=== PATIENT | female | born 1990 | race Caucasian/White ===

== ENCOUNTER 2022-06-20 16:07 | Emergency (ER) | payer MEDICAID ==
[~2022-06-20] VITALS: Ht 167.6 cm; Wt 101.0 kg
[~2022-06-20 16:07] MED LIST: [UNRECOGNIZED DRUG - CODE]
[2022-06-20] MEDS ORDERED: ACETAMINOPHEN 325MG TABLET PO STA (18:03)
[2022-06-20] MEDS ORDERED: PENI500T MT (18:42)
[2022-06-20] MEDS ORDERED: PENICILLIN V POTASSIUM 250MG TABLET PO SCH (18:45)
[2022-06-20] MEDS ORDERED: IBUPROFEN 600MG TABLET PO ONE (18:45)
[2022-06-20] MEDS ORDERED: DEXAMETHASONE 4MG TABLET PO ONE (18:45)
[2022-06-20 19:20] VITALS: BP 136/79
[2022-06-20 20:04] LABS: CLARITY URINE CLEAR (CLEAR); COLOR URINE YELLOW (YELLOW); KETONES URINE NEGATIVE (NEGATIVE); LEUKOCYTE ESTERASE URINE NEGATIVE (NEGATIVE); NITRITE URINE NEGATIVE (NEGATIVE); OCCULT BLOOD URINE 1+ (NEGATIVE); PROTEIN URINE 1+ (NEGATIVE); SPECIFIC GRAVITY URINE 1.024 (1.005-1.030)
== END 2022-06-20 19:15 | disposition home or self-care (01) ==
LOC: ER 16:07
DX: J03.90 Acute tonsillitis, unspecified (principal); R00.0 Tachycardia, unspecified
CPT/HCPCS: 81003; 81025; 99284; J8540

== ENCOUNTER 2022-12-10 12:19 | Emergency (ER) | payer BC ==
[~2022-12-10] VITALS: Ht 165.1 cm; Wt 97.0 kg
[~2022-12-10 12:19] MED LIST changes: +PENI500T MT
[2022-12-10 12:43] VITALS: O2SAT 98
[2022-12-10 13:05] LABS: BASOPHILS % 0.7 % (0.0-2.0); HEMATOCRIT. 36.3 % (36.0-48.0); HEMOGLOBIN. 12.3 g/dL (12.0-16.0); LYMPHOCYTES % 27.8 % (20.0-50.0); MEAN CORPUSCULAR HEMOGLOBIN 29.2 pg (28.0-32.0); MEAN CORPUSCULAR VOLUME 86.2 fL (81.0-99.0); MEAN PLATELET VOLUME 7.1 fl (7.4-10.4); MONOCYTES % 4.8 % (2.0-8.0); NEUTROPHILS % 64.7 % (40.0-76.0); PLATELET 400 x1000/uL (130-400); RED BLOOD CELL COUNT 4.22 mill/uL (4.2-5.4); RED CELL DISTRIBUTION WIDTH 15.8 % (11.6-14.6)
[2022-12-10 13:15] LABS: CHLORIDE 105 mEq/L (98-107)
[2022-12-10 13:27] LABS: B-HCG QUANTITATIVE 156 mIU/mL (<3)
[2022-12-10] MEDS ORDERED: METHOTREXATE SODIUM/PF 50 MG/2 ML VIAL IM ONE (16:30)
[2022-12-10] MEDS ORDERED: METHOTREXATE SODIUM/PF 50 MG/2 ML VIAL IM NR (16:41)
[2022-12-10 18:45] VITALS: BP 136/83; PULSE 68; RESP 20; TEMP 98.2
== END 2022-12-10 18:48 | disposition home or self-care (01) ==
LOC: ER 12:19
DX: O00.90 Unspecified ectopic pregnancy without intrauterine pregnancy (principal); N93.9 Abnormal uterine and vaginal bleeding, unspecified; Z3A.00 Weeks of gestation of pregnancy not specified
CPT/HCPCS: 99285; 76801; 80048; 84702; 85025; 36415; 76817; 96372; J9260